=== PATIENT | female | born 1960 | race Caucasian/White ===

== ENCOUNTER 2022-06-10 12:20 | Inpatient (IN) | payer OTHER ==
[~2022-06-10] VITALS: Ht 157.5 cm; Wt 49.4 kg
--- NOTE | 2022-06-10 12:51 | NUR ---
SE RECIBE PTE ALERTA Y ORIENTADA X3 CUAL REFEIRE TENER HEMOGLOBINA EN 6. PTE MUESTRA PRUEBA DE LABORATORIO. SE EITAN S/V Y SE UBICA.
[2022-06-10] MEDS ORDERED: BUTALBITAL-ACE1 EACH PO (12:52)
--- NOTE | 2022-06-10 15:14 | NUR ---
PTE EVALUADO POR MD BYERS ORDENA [place] MED SE EDUCA A PTE SOBRE EL MISMO Y REFIER EENTENDER. RN STERN EDUCA A PTE Y EJECUTA ORDENES BAJO MEDIDAS ACEPTICAS. PTE PEND A RESULTADOS DE LAB.
== END 2022-06-12 16:00 | disposition left against medical advice (07) | DRG 812 ==
LOC: ER 12:20 → MEDI 17:21
PROVIDERS: ADMIT Internal Medicine; ATTEND Internal Medicine
PROC: 30233N1 Transfusion of Nonautologous Red Blood Cells into Peripheral Vein, Percutaneous Approach (ICD-10-PCS; principal; 2022-06-11)
DX: D50.8 Other iron deficiency anemias (principal); R42 Dizziness and giddiness